=== PATIENT | female | born 1935 | race Caucasian/White ===

== ENCOUNTER → 2016-02-14 | Outpatient (CLI) | payer OTHER ==
[~2016-02-14] MED LIST: ALBU18002 INH; ASPI81TA28 PO; BUDE180I INH; CHOL2000 PO; COEN1CAP17 PO; HYDR25TA5 PO; LOSA100T65 PO; MECL1TAB40 PO; MONT1TAB3 PO; NITR0.4S UT; PANT1TAB3 PO; PRVC/40 PO; SYN137 PO; TERA5CAP PO; TPRSR50 PO; WARF2.5T8 PO
[2016-02-14 09:54] LABS: BLOOD UREA NITROGEN 14 mg/dl (7-18); BUN/CREATININE RATIO 18.3 (10-20); CALCIUM 9.4 mg/dl (8.5-10.1); CARBON DIOXIDE 29 mmol/L (21-32); CHLORIDE 99 mmol/L (98-107); CREATININE 0.78 mg/dl (0.60-1.20); GLUCOSE 111 mg/dl (70-99); POTASSIUM 4.3 mmol/L (3.5-5.1); SODIUM 136 mmol/L (136-145)
== END ==
LOC: C.LABFOXMH 09:23
PROVIDERS: ATTEND Internal Medicine
DX: R60.9 Edema, unspecified (principal)

== ENCOUNTER → 2016-05-08 | Outpatient (CLI) | payer OTHER ==
[~2016-05-08] MED LIST changes: -PANT1TAB3 PO; +PANT1TAB48 PO
[2016-05-08 09:54] LABS: INR 1.1 (0.9-1.1); PROTHROMBIN TIME (PATIENT) 12.1 SECONDS (9.0-12.0)
== END | disposition home or self-care (01) ==
LOC: C.LABFOXMH 08:53
PROVIDERS: ATTEND Internal Medicine Cardiovascular Disease
DX: I48.91 Unspecified atrial fibrillation (principal)

== ENCOUNTER → 2016-05-11 | Outpatient (CLI) | payer OTHER ==
[2016-05-11 09:57] LABS: PROTHROMBIN TIME (PATIENT) 41.5 SECONDS (9.0-12.0)
[2016-05-11 09:58] LABS: INR 3.7 (0.9-1.1)
== END | disposition home or self-care (01) ==
LOC: C.LABFOXMH 09:02
PROVIDERS: ATTEND Internal Medicine
DX: I48.91 Unspecified atrial fibrillation (principal)

== ENCOUNTER → 2016-05-16 | Outpatient (CLI) | payer OTHER ==
[2016-05-16 09:39] LABS: PROTHROMBIN TIME (PATIENT) 50.4 SECONDS (9.0-12.0)
[2016-05-16 09:50] LABS: INR 4.4 (0.9-1.1)
== END ==
LOC: C.LABFOXMH 09:02
PROVIDERS: ATTEND Internal Medicine
DX: Z51.81 Encounter for therapeutic drug level monitoring (principal); Z79.01 Long term (current) use of anticoagulants

== ENCOUNTER → 2016-05-21 | Outpatient (CLI) | payer OTHER ==
[2016-05-21 10:11] LABS: PROTHROMBIN TIME (PATIENT) 42.6 SECONDS (9.0-12.0)
[2016-05-21 10:14] LABS: INR 3.8 (0.9-1.1)
== END | disposition home or self-care (01) ==
LOC: C.LABFOXMH 09:19
PROVIDERS: ATTEND Internal Medicine Cardiovascular Disease
DX: I48.91 Unspecified atrial fibrillation (principal); Z51.81 Encounter for therapeutic drug level monitoring; Z79.01 Long term (current) use of anticoagulants

== ENCOUNTER → 2016-05-25 | Outpatient (CLI) | payer OTHER ==
[2016-05-25 08:26] LABS: INR 1.5 (0.9-1.1); PROTHROMBIN TIME (PATIENT) 16.8 SECONDS (9.0-12.0)
== END | disposition home or self-care (01) ==
LOC: C.LABFOXMH 07:53
PROVIDERS: ATTEND Pharmacist Pharmacotherapy
DX: Z51.81 Encounter for therapeutic drug level monitoring (principal); Z79.01 Long term (current) use of anticoagulants

== ENCOUNTER → 2016-06-01 | Outpatient (CLI) | payer OTHER ==
[2016-06-01 09:11] LABS: PROTHROMBIN TIME (PATIENT) 22.2 SECONDS (9.0-12.0)
--- NOTE | 2016-06-15 10:08 | CODING QUERY NO DIAGNOSIS ---
TREATMENT RENDERED WITHOUT A DIAGNOSIS 33 To promote full compliance with coding requirements relating to patient care, physician participation is requested in all cases of scale tester uncertainty. Please assist us with providing a diagnosis/symptom for the test(s) below: A diagnosis/symptom was not documented on your Order. A valid diagnosis/symptom is required to bill all insurances. Please remember that we are unable to code a diagnosis of rule out, probable, possible, questionable, or suspected. DOS 06/01/16 Tests that require a diagnosis: * PT/INR DIAGNOSIS: Provider Signature: Date: Thank you Jailyn Mancilla [facility] Information Management Once completed, please kindly fax back to [phone] For questions please call [phone]
== END ==
LOC: C.LABFOXMH 08:50
PROVIDERS: ATTEND Internal Medicine Cardiovascular Disease
DX: I48.91 Unspecified atrial fibrillation (principal)

== ENCOUNTER → 2016-06-15 | Outpatient (CLI) | payer OTHER ==
[2016-06-15 10:33] LABS: INR 1.6 (0.9-1.1); PROTHROMBIN TIME (PATIENT) 17.1 SECONDS (9.0-12.0)
--- NOTE | 2016-06-29 12:07 | CODING QUERY NO DIAGNOSIS ---
TREATMENT RENDERED WITHOUT A DIAGNOSIS To promote full compliance with coding requirements relating to patient care, physician participation is requested in all cases of management manager uncertainty. Please assist us with providing a diagnosis/symptom for the test(s) below: A diagnosis/symptom was not documented on your Order. A valid diagnosis/symptom is required to bill all insurances. Please remember that we are unable to code a diagnosis of rule out, probable, possible, questionable, or suspected. Tests that require a diagnosis: * PT/INR DIAGNOSIS: Provider Signature: Date: Thank you Ginger Patino [employer] Information Management Once completed, please kindly fax back to [phone] For questions please call [phone]
== END | disposition home or self-care (01) ==
LOC: C.LABFOXMH 09:52
PROVIDERS: ATTEND Internal Medicine Cardiovascular Disease
DX: I48.91 Unspecified atrial fibrillation (principal)

== ENCOUNTER → 2016-06-29 | Outpatient (CLI) | payer OTHER ==
[2016-06-29 09:44] LABS: INR 1.9 (0.9-1.1); PROTHROMBIN TIME (PATIENT) 20.9 SECONDS (9.0-12.0)
== END ==
LOC: C.LABFOXMH 09:03
PROVIDERS: ATTEND Internal Medicine Cardiovascular Disease
DX: I48.91 Unspecified atrial fibrillation (principal); Z51.81 Encounter for therapeutic drug level monitoring; Z79.01 Long term (current) use of anticoagulants

== ENCOUNTER → 2016-07-13 | Outpatient (CLI) | payer OTHER ==
[2016-07-13 12:02] LABS: INR 2.7 (0.9-1.1); PROTHROMBIN TIME (PATIENT) 30.5 SECONDS (9.0-12.0)
== END | disposition home or self-care (01) ==
LOC: C.LABFOXMH 08:58
PROVIDERS: ATTEND Internal Medicine Cardiovascular Disease
DX: I48.91 Unspecified atrial fibrillation (principal); Z51.81 Encounter for therapeutic drug level monitoring; Z79.01 Long term (current) use of anticoagulants

== ENCOUNTER → 2016-08-06 | Outpatient (CLI) | payer OTHER ==
[2016-08-06 10:54] LABS: HEMATOCRIT 35.9 % (37-47); MEAN CORPUSCULAR HEMOGLOBIN 32.9 pg (25-34); MEAN CORPUSCULAR HGB CONC 34.3 g/dl (32-36); PLATELET COUNT 152 K/uL (130-400); RED BLOOD COUNT 3.74 M/uL (4.2-5.4); WHITE BLOOD COUNT 5.45 K/uL (4.8-10.8)
[2016-08-06 11:02] LABS: ALT/SGPT 40 U/L (12-78); BLOOD UREA NITROGEN 12 mg/dl (7-18); BUN/CREATININE RATIO 13.8 (10-20); CARBON DIOXIDE 26 mmol/L (21-32); CHLORIDE 103 mmol/L (98-107); CREATININE 0.85 mg/dl (0.60-1.20); GLUCOSE 112 mg/dl (70-99); SODIUM 137 mmol/L (136-145)
[2016-08-06 11:11] LABS: ESTIMATED AVERAGE GLUCOSE 143 mg/dl; HA1C FLAG Normal (Normal)
[2016-08-06 11:12] LABS: ALB/GLOB RATIO 0.9 (0.9-2); ALKALINE PHOSPHATASE 110 U/L (45-117); AST/SGOT 24 U/L (15-37)
== END ==
LOC: C.LABFOXMH 08:26
PROVIDERS: ATTEND Internal Medicine
DX: E11.9 Type 2 diabetes mellitus without complications (principal); R53.83 Other fatigue; E03.9 Hypothyroidism, unspecified

== ENCOUNTER → 2016-08-10 | Outpatient (CLI) | payer OTHER | END | disposition home or self-care (01) | LOC: C.LABFOXMH 08:17 | PROVIDERS: ATTEND Internal Medicine | DX: Z51.81 Encounter for therapeutic drug level monitoring (principal); Z79.01 Long term (current) use of anticoagulants ==

== ENCOUNTER → 2016-09-07 | Outpatient (CLI) | payer OTHER ==
[2016-09-07 09:56] LABS: INR 2.2 (0.9-1.1); PROTHROMBIN TIME (PATIENT) 23.8 SECONDS (9.0-12.0)
--- NOTE | 2016-09-10 15:45 | CODING QUERY NO DIAGNOSIS ---
Valid Physician Order Needed A valid physician order must be submitted in order to properly bill for the service(s) provided, including date of service(s), valid diagnosis, and physician signature. If these tests are done on a recurring basis the original physician order must be submitted in order to code and bill for the service(s) provided. Please fax us the original, signed physician order so that we may expedite billing to [phone] DOS 09/07/2016 * PROTHROMBIN TIME Thank you [facility] Information Management
== END | disposition home or self-care (01) ==
LOC: C.LABFOXMH 09:24
PROVIDERS: ATTEND Internal Medicine Cardiovascular Disease
DX: I48.91 Unspecified atrial fibrillation (principal)

== ENCOUNTER → 2016-10-03 | Outpatient (CLI) | payer OTHER ==
[2016-10-03 10:43] LABS: INR 2.4 (0.9-1.1); PROTHROMBIN TIME (PATIENT) 26.1 SECONDS (9.0-12.0)
[2016-10-03 10:46] LABS: ALT/SGPT 26 U/L (12-78); AST/SGOT 18 U/L (15-37); BLOOD UREA NITROGEN 12 mg/dl (7-18); BUN/CREATININE RATIO 15.8 (10-20); CALCIUM 8.8 mg/dl (8.5-10.1); CARBON DIOXIDE 27 mmol/L (21-32); CHLORIDE 104 mmol/L (98-107); CREATININE 0.75 mg/dl (0.60-1.20); GLUCOSE 89 mg/dl (70-99); POTASSIUM 3.8 mmol/L (3.5-5.1); SODIUM 135 mmol/L (136-145)
[2016-10-03 10:57] LABS: ALB/GLOB RATIO 0.9 (0.9-2); ALKALINE PHOSPHATASE 90 U/L (45-117); CHOLESTEROL 150 mg/dl (0-200); CHOLESTEROL/HDL RATIO 3.1; HDL CHOLESTEROL 48 mg/dl; LDL CHOLESTEROL CALCULATED 77 mg/dl; TRIGLYCERIDES 125 mg/dl (0-150); VERY LOW DENSITY LIPOPROT CALC 25 mg/dl
== END ==
LOC: C.LABFOXMH 10:09
PROVIDERS: ATTEND Internal Medicine
DX: E78.00 Pure hypercholesterolemia, unspecified (principal); Z79.01 Long term (current) use of anticoagulants

== ENCOUNTER → 2016-10-16 | Outpatient (CLI) | payer OTHER | LOC: C.LABFOXMH 11:49 | PROVIDERS: ATTEND Nurse Practitioner Family | DX: R19.7 Diarrhea, unspecified (principal) ==

== ENCOUNTER → 2016-10-31 | Outpatient (CLI) | payer OTHER ==
[2016-10-31 10:15] LABS: INR 2.5 (0.9-1.1)
== END ==
LOC: C.LABFOXMH 09:08
PROVIDERS: ATTEND Internal Medicine Cardiovascular Disease
DX: Z79.01 Long term (current) use of anticoagulants (principal)

== ENCOUNTER 2016-11-04 13:56 | Emergency (ER) | payer OTHER ==
[~2016-11-04] VITALS: Ht 162.6 cm; Wt 93.4 kg
[~2016-11-04 13:56] MED LIST changes: -WARF2.5T8 PO
[2016-11-04 14:07] VITALS: TEMP 37.1; Ht 162.6 cm; Wt 93.4 kg
[2016-11-04] MEDS ORDERED: WARF2.5T8 PO (14:35)
--- NOTE | 2016-11-04 14:43 | EMERGENCY ROOM VISIT NOTE ---
History Report prepared by Ileana: Gary Johnson Under the Supervision of: Dr. Danilo Dey M.D. First contact with patient: 14:19 Chief Complaint: EYE ASSESSMENT Stated Complaint: RT EYE, HEADACHE History of Present Illness The patient is a 81 year old female who presents to the Emergency Room with complaints of constant right eye swelling that occurred this morning. She rates her discomfort as a 5/10 in severity. The patient states that she went to bed at 2130. She states that she woke up multiple times and did not notice any eye injury. The patient states that she woke up this morning and noticed around her eye was black and blue and swollen, but denies any possible injury. She states that around her eye was mildly painful, but admits that this has resolved. She admits that she is currently on Coumadin. The patient denies eye pain in general or with movement and visionary problems. Source of History: patient Onset: this morning Position: eye (right) Symptom Intensity: 5/10 Quality: other (swelling) Timing: constant Review of Systems See HPI for pertinent positives & negatives. A total of 10 systems reviewed and were otherwise negative. Past Medical & Surgical Medical Problems: (1) HTN (hypertension) (2) Hypothyroidism (3) New onset a-fib (4) TIA (transient ischemic attack) Family History Patient reports no known family medical history. Social History Smoking Status: Never Smoker Alcohol Use: none Drug Use: none Housing Status: assisted living Occupation Status: retired Current/Historical Medications Scheduled Aspirin (Aspirin Ec), 81 MG PO QAM Budesonide (Inhalation) (Pulmicort Flexhaler), 2 PUFFS INH BID Cholecalciferol (Vitamin D3), 1 CAP PO QAM Coenzyme Q10 (Ubidecarenone) (Co Q 10), 200 MG PO QAM Hydrochlorothiazide (Hydrochlorothiazide), 25 MG PO Q2D Levothyroxine Sodium (Levothyroxine Sodium), 137 MCG PO DAILYBB Losartan Potassium (Cozaar), 100 MG PO QAM Metoprolol Succinate (Metoprolol Succinate ER), 50 MG PO BID Montelukast Sodium (Singulair), 10 MG PO HS Nitroglycerin (Nitrostat), 0.4 MG UT PRN Pantoprazole (Protonix), 40 MG PO QAM Pravastatin Sod (Pravastatin Sodium), 40 MG PO QPM Terazosin Hcl (Hytrin), 5 MG PO QAM Warfarin Sod (Jantoven), 2.5 MG PO DAILY Scheduled PRN Albuterol Sulfate (Proair Respiclick), 2 PUFFS INH QID PRN for Wheezing Meclizine HCl (Meclizine HCl), 1 TAB PO TID PRN for Dizziness or Vertigo Allergies Coded Allergies: Amlodipine (Verified Allergy, Unknown, UNKNOWN, 11/04/16) Codeine (Verified Allergy, Unknown, UNKNOWN, 11/04/16) NSAIDs (Verified Allergy, Unknown, UNKNOWN, 11/04/16) NUTS (Verified Allergy, Unknown, UNKNOWN, 11/04/16) Naproxen (Verified Allergy, Unknown, UNKNOWN, 11/04/16) Oxycodone (Verified Allergy, Unknown, UNKNOWN, 11/04/16) Physical Exam Vital Signs Date Time Temp Pulse Resp B/P (MAP) Pulse Ox O2 Delivery O2 Flow Rate FiO2 11/04/16 15:44 59 16 169/81 96 11/04/16 14:07 37.1 73 20 170/75 98 Room Air Physical Exam GENERAL: Patient is a healthy-appearing well-nourished 81 year old female. HEAD: Normocephalic atraumatic EYES: Ocular movements intact pupils equal and react to light. Soft tissue swelling around right eye that is ecchymotic. Eye has good ROM free from pain. EOM in tact. OROPHARYNX mucous membranes are moist no exudates present no erythema or edema present NECK: Supple no nuchal rigidity CHEST: Good equal expansion LUNGS: Clear and equal to auscultation CARDIAC: Normal S1 and S2 ABDOMEN: Soft nontender no guarding BACK: No CVA tenderness EXTREMITIES: No pain upon palpation normal muscle strength in all groups no clubbing cyanosis or edema NEURO: Patient is following commands and answering questions appropriately. Alert and oriented x3 Cranial Nerves 2-12 grossly intact Medical Decision & Procedures ER Provider Diagnostic Interpretation: CT results as stated below per my review and radiologist interpretation: FACIAL BONES-MXILLOFAC WITHOUT CT DOSE: HISTORY: Pain. Edema. Soft tissue edema. Pt rt eye swelling TECHNIQUE: Multiaxial CT images of the maxillofacial region were performed and reformatted in the coronal plane without the use of contrast. A dose lowering technique was utilized adhering to the principles of ALARA. COMPARISON: None. FINDINGS: The visualized cervical spine, skull base, pterygoid plates, nasal bones, lamina papyracea, orbital floors, mandible, and zygomatic arches are intact. No fractures. The orbits are unremarkable. There are findings of considerable soft tissue edematous change about the right lateral facial region and right periorbital region.] Appears symmetric. The retroseptal structures are unremarkable. The optic nerves appear symmetric. No acute bony abnormality. Major sinuses are considered clear. No evidence for lytic or blastic process. IMPRESSION: 1. Findings consistent with generalized considerable soft tissue edematous change in the region of the right facial, right periorbital, and lateral right facial region. 2. The globes are symmetric with no retroseptal edematous change. 3. No acute bony abnormality. 4. No evidence for drainable abscess or collection. 5. The appearance is suggestive of a generalized soft tissue cellulitis. 6. Mild bilateral reactive cervical adenopathy. The above report was generated using voice recognition software. It may contain grammatical, syntax or spelling errors. Electronically signed by: Rufino Mckinney M.D. 11/04/2016 3:10 PM Dictated Date/Time: 11/04/2016 3:06 PM HEAD WITHOUT CONTRAST (CT) CT DOSE: 843.56 mGy.cm HISTORY: Pain. Edema. Pt c/o Rt head swelling TECHNIQUE: Multiaxial CT images of the head were performed without the use of intravenous contrast. A dose lowering technique was utilized adhering to the principles of ALARA. Comparison: 12/22/2015 Findings: Considerable extracranial right prefrontal and periportal soft tissue edema. Soft tissue edema is also seen lateral to the right zygomatic arch. No acute bony abnormality. Major sinuses are clear. Findings of considerable chronic small vessel change throughout both cerebral hemispheres. No acute intracranial hemorrhage. No midline shift. Intracranial soft tissue edema posterior to the right parietal vertex. The calvarium and skull base are intact. The ventricles and sulci are within normal limits. There is no mass, hematoma, midline shift, or acute infarct. Impression: 1. Extracranial soft tissue edema. 2. Intracranial chronic small vessel change with no acute process. The above report was generated using voice recognition software. It may contain grammatical, syntax or spelling errors. Electronically signed by: Rufino Mckinney M.D. 11/04/2016 3:05 PM Dictated Date/Time: 11/04/2016 3:03 PM Laboratory Results 11/04/16 14:35 Red Blood Count 3.44, Mean Corpuscular Volume 94.5, Mean Corpuscular Hemoglobin 31.7, Mean Corpuscular Hemoglobin Concent 33.5, Mean Platelet Volume 10.6, Neutrophils (%) (Auto) 64.7, Lymphocytes (%) (Auto) 14.9, Monocytes (%) (Auto) 16.7, Eosinophils (%) (Auto) 3.3, Basophils (%) (Auto) 0.3, Neutrophils # (Auto ) 4.67, Lymphocytes # (Auto) 1.08, Monocytes # (Auto) 1.21, Eosinophils # (Auto ) 0.24, Basophils # (Auto) 0.02 Test 11/04/16 14:35 White Blood Count 7.23 K/uL (4.8-10.8) Red Blood Count 3.44 M/uL (4.2-5.4) Hemoglobin 10.9 g/dL (12.0-16.0) Hematocrit 32.5 % (37-47) Mean Corpuscular Volume 94.5 fL (80-100) Mean Corpuscular Hemoglobin 31.7 pg (25-34) Mean Corpuscular Hemoglobin Concent 33.5 g/dl (32-36) Platelet Count 168 K/uL (130-400) Mean Platelet Volume 10.6 fL (7.4-10.4) Neutrophils (%) (Auto) 64.7 % Lymphocytes (%) (Auto) 14.9 % Monocytes (%) (Auto) 16.7 % Eosinophils (%) (Auto) 3.3 % Basophils (%) (Auto) 0.3 % Neutrophils # (Auto) 4.67 K/uL (1.4-6.5) Lymphocytes # (Auto) 1.08 K/uL (1.2-3.4) Monocytes # (Auto) 1.21 K/uL (0.11-0.59) Eosinophils # (Auto) 0.24 K/uL (0-0.5) Basophils # (Auto) 0.02 K/uL (0-0.2) RDW Standard Deviation 45.9 fL (36.4-46.3) RDW Coefficient of Variation 13.3 % (11.5-14.5) Immature Granulocyte % (Auto) 0.1 % Immature Granulocyte # (Auto) 0.01 K/uL (0.00-0.02) Prothrombin Time 31.9 SECONDS (9.0-12.0) Prothromb Time International Ratio 2.9 (0.9-1.1) Labs reviewed by ED physician. ED Course 1424: Past medical records reviewed. The patient was evaluated in room B04B. A complete history and physical examination was performed. 1528: Upon reexamination the patient is doing well. I discussed results and treatment plan with the patient. She verbalizes agreement and understanding. The patient is ready for discharge. Medical Decision The differential diagnosis includes etiologies such as: black eye, orbit fracture, bleeding hemorrhage. This is an 81-year-old female that presents emergency department complaining of right I orbit swelling. The patient is allergic black eye to this area. The patient does not remember hitting her eye but woke up this morning like this. The large amounts while she was sent for CAT scan of the face as well as head. This is not show any evidence of acute fracture or retrobulbar hematoma. Patient's finding I felt that the patient can safely be discharged home. Her Coumadin level is slightly elevated. I will have the patient hold that for 3 days until she follows up with her primary care physician. Patient was in agreement with the treatment plan. Extraocular movement is intact and the patient has no pain eye movement. Medication Reconcilliation Current Medication List: was personally reviewed by me Blood Pressure Screening Patient's blood pressure: Elevated blood pressure Blood pressure disposition: Referred to PCP Impression Primary Impression: Facial contusion Additional Impression: HTN (hypertension) Scribe Attestation The scribe's documentation has been prepared under my direction and personally reviewed by me in its entirety. I confirm that the note above accurately reflects all work, treatment, procedures, and medical decision making performed by me. Departure Information Dispostion Home / Self-Care Referrals Sarina Hall (PCP) Forms HOME CARE DOCUMENTATION FORM, IMPORTANT VISIT INFORMATION, WORK / SCHOOL INSTRUCTIONS Patient Instructions ED Contusion Eye, Hypertension Control, My [facility] Additional Instructions Follow up with DR Fowler's office Hold Coumadin for three days You have been examined and treated today on an emergency basis only. This is not a substitute for, or an effort to provide, complete comprehensive medical care. It is impossible to recognize and treat all injuries or illnesses in a single emergency department visit. It is therefore important that you follow up closely with Dr Fowler. Call as soon as possible for an appointment. Thank you for your time and consideration. I look forward to speaking with you again soon. Please don't hesitate to call us if you have any questions. Problem Qualifiers Primary Impression: Facial contusion Encounter type: initial encounter Qualified Codes: S00.83XA - Contusion of other part of head, initial encounter Additional Impression: HTN (hypertension) Hypertension type: unspecified Qualified Codes: I10 - Essential (primary) hypertension
[2016-11-04 14:48] LABS: BASO % 0.3 %; BASO ABS # 0.02 K/uL (0-0.2); COMPLETE YES; EOS % 3.3 %; HEMATOCRIT 32.5 % (37-47); IG% 0.1 %; LYMPH % 14.9 %; LYMPH ABS # 1.08 K/uL (1.2-3.4); MEAN CELL VOLUME 94.5 fL (80-100); MEAN CORPUSCULAR HEMOGLOBIN 31.7 pg (25-34); MEAN CORPUSCULAR HGB CONC 33.5 g/dl (32-36); MEAN PLATELET VOLUME 10.6 fL (7.4-10.4); MONO % 16.7 %; NEUT % 64.7 %; PLATELET COUNT 168 K/uL (130-400); RED BLOOD COUNT 3.44 M/uL (4.2-5.4); WHITE BLOOD COUNT 7.23 K/uL (4.8-10.8)
[2016-11-04 14:56] LABS: INR 2.9 (0.9-1.1); PROTHROMBIN TIME (PATIENT) 31.9 SECONDS (9.0-12.0)
--- NOTE | 2016-11-04 15:06 | DIAGNOSTIC IMAGING REPORT ---
HEAD WITHOUT CONTRAST (CT) CT DOSE: 843.56 mGy.cm HISTORY: Pain. Edema. Pt c/o Rt head swelling TECHNIQUE: Multiaxial CT images of the head were performed without the use of intravenous contrast. A dose lowering technique was utilized adhering to the principles of ALARA. Comparison: 12/22/2015 Findings: Considerable extracranial right prefrontal and periportal soft tissue edema. Soft tissue edema is also seen lateral to the right zygomatic arch. No acute bony abnormality. Major sinuses are clear. Findings of considerable chronic small vessel change throughout both cerebral hemispheres. No acute intracranial hemorrhage. No midline shift. Intracranial soft tissue edema posterior to the right parietal vertex. The calvarium and skull base are intact. The ventricles and sulci are within normal limits. There is no mass, hematoma, midline shift, or acute infarct. Impression: 1. Extracranial soft tissue edema. 2. Intracranial chronic small vessel change with no acute process. The above report was generated using voice recognition software. It may contain grammatical, syntax or spelling errors. Electronically signed by: Rufino Mckinney M.D. 11/04/2016 3:05 PM Dictated Date/Time: 11/04/2016 3:03 PM
--- NOTE | 2016-11-04 15:11 | DIAGNOSTIC IMAGING REPORT ---
FACIAL BONES-MXILLOFAC WITHOUT CT DOSE: HISTORY: Pain. Edema. Soft tissue edema. Pt rt eye swelling TECHNIQUE: Multiaxial CT images of the maxillofacial region were performed and reformatted in the coronal plane without the use of contrast. A dose lowering technique was utilized adhering to the principles of ALARA. COMPARISON: None. FINDINGS: The visualized cervical spine, skull base, pterygoid plates, nasal bones, lamina papyracea, orbital floors, mandible, and zygomatic arches are intact. No fractures. The orbits are unremarkable. There are findings of considerable soft tissue edematous change about the right lateral facial region and right periorbital region.] Appears symmetric. The retroseptal structures are unremarkable. The optic nerves appear symmetric. No acute bony abnormality. Major sinuses are considered clear. No evidence for lytic or blastic process. IMPRESSION: 1. Findings consistent with generalized considerable soft tissue edematous change in the region of the right facial, right periorbital, and lateral right facial region. 2. The globes are symmetric with no retroseptal edematous change. 3. No acute bony abnormality. 4. No evidence for drainable abscess or collection. 5. The appearance is suggestive of a generalized soft tissue cellulitis. 6. Mild bilateral reactive cervical adenopathy. The above report was generated using voice recognition software. It may contain grammatical, syntax or spelling errors. Electronically signed by: Rufino Mckinney M.D. 11/04/2016 3:10 PM Dictated Date/Time: 11/04/2016 3:06 PM
[2016-11-04 15:44] VITALS: BP 169/81; PULSE 59; O2SAT 96
== END 2016-11-04 15:47 | disposition home or self-care (01) ==
LOC: C.EDB 13:59 → C.EDA 15:47
DX: S00.83XA Contusion of other part of head, initial encounter (principal); I10 Essential (primary) hypertension; X58.XXXA Exposure to other specified factors, initial encounter; I48.91 Unspecified atrial fibrillation; E03.9 Hypothyroidism, unspecified; Z86.73 Personal history of transient ischemic attack (TIA), and cerebral infarction without residual deficits; Z79.01 Long term (current) use of anticoagulants; Z79.82 Long term (current) use of aspirin; Z79.899 Other long term (current) drug therapy

== ENCOUNTER → 2016-11-05 | Outpatient (CLI) | payer OTHER ==
[~2016-11-05] MED LIST changes: +WARF2.5T8 PO
[2016-11-05 13:19] LABS: HEMATOCRIT 29.9 % (37-47); MEAN CELL VOLUME 95.5 fL (80-100); MEAN CORPUSCULAR HEMOGLOBIN 32.3 pg (25-34); MEAN CORPUSCULAR HGB CONC 33.8 g/dl (32-36); MEAN PLATELET VOLUME 11.4 fL (7.4-10.4); PLATELET COUNT 152 K/uL (130-400); RED BLOOD COUNT 3.13 M/uL (4.2-5.4); WHITE BLOOD COUNT 7.68 K/uL (4.8-10.8)
[2016-11-05 13:34] LABS: ALT/SGPT 23 U/L (12-78); AST/SGOT 18 U/L (15-37); BLOOD UREA NITROGEN 12 mg/dl (7-18); BUN/CREATININE RATIO 13.9 (10-20); CALCIUM 8.7 mg/dl (8.5-10.1); CARBON DIOXIDE 25 mmol/L (21-32); CHLORIDE 99 mmol/L (98-107); CREATININE 0.84 mg/dl (0.60-1.20); GLUCOSE 145 mg/dl (70-99); POTASSIUM 3.6 mmol/L (3.5-5.1); SODIUM 132 mmol/L (136-145)
[2016-11-05 13:45] LABS: ALB/GLOB RATIO 0.9 (0.9-2); ALKALINE PHOSPHATASE 93 U/L (45-117)
== END | disposition home or self-care (01) ==
LOC: C.LABFOXAE 12:08
PROVIDERS: ATTEND Internal Medicine
DX: R41.82 Altered mental status, unspecified (principal)

== ENCOUNTER → 2016-11-06 | Outpatient (CLI) | payer OTHER ==
--- NOTE | 2016-11-06 16:33 | DIAGNOSTIC IMAGING REPORT ---
HEAD WITHOUT CONTRAST (CT) CLINICAL HISTORY: 81 years-old Female presenting with LEFT UPPER EXTREMITY WEAKNESS. TECHNIQUE: Multidetector CT imaging of the head was performed without the use of intravenous contrast. IV contrast: None. A dose lowering technique was used consistent with the principles of ALARA (as low as reasonably achievable). COMPARISON: 11/04/2016. CT DOSE (mGy.cm): The estimated cumulative dose is 776.86 mGycm. FINDINGS: Flame Cutting Supervisor topogram: Unremarkable. Proportional ventricular and sulcal prominence except at the vertex where there is effacement of the sulci at the vertex with gyral crowding. A mildly decreased callosal angle is noted on reformatted coronal plane. Periventricular and subcortical white matter hypoattenuation. No mass effect or midline shift. No hemorrhage or acute territorial infarct. No extra-axial fluid collection. Paranasal sinuses and mastoid air cells clear. Calvarium intact. Abnormal hyperdense lobular collection at the right vertex. IMPRESSION: 1. Findings remain unchanged with effacement of the sulci at the vertex with gyral crowding and a slightly decreased callosal angle, suggestive of normal pressure hydrocephalus. 2. Hyperdense lobular collection at the right vertex could be compatible with a soft tissue hematoma in the setting of recent trauma. Without a recent history of trauma, neoplastic soft tissue cannot be excluded. The report will be called/faxed according to standard departmental protocol. Electronically signed by: Romario Bass M.D. 11/06/2016 4:31 PM Dictated Date/Time: 11/06/2016 4:24 PM
== END | disposition home or self-care (01) ==
LOC: C.CTS 16:02
PROVIDERS: ATTEND Internal Medicine
DX: M62.81 Muscle weakness (generalized) (principal)

== ENCOUNTER → 2016-11-20 | Outpatient (CLI) | payer OTHER ==
[2016-11-20 08:13] LABS: MEAN CELL VOLUME 93.9 fL (80-100); MEAN CORPUSCULAR HGB CONC 34.1 g/dl (32-36); MEAN PLATELET VOLUME 10.3 fL (7.4-10.4); PLATELET COUNT 227 K/uL (130-400); RED BLOOD COUNT 3.62 M/uL (4.2-5.4); WHITE BLOOD COUNT 11.39 K/uL (4.8-10.8)
[2016-11-20 08:26] LABS: BLOOD UREA NITROGEN 18 mg/dl (7-18); BUN/CREATININE RATIO 25.7 (10-20); CARBON DIOXIDE 29 mmol/L (21-32); CHLORIDE 93 mmol/L (98-107); GLUCOSE 81 mg/dl (70-99); POTASSIUM 3.8 mmol/L (3.5-5.1); SODIUM 128 mmol/L (136-145)
== END | disposition home or self-care (01) ==
LOC: C.LABFOXAE 07:47
PROVIDERS: ATTEND Internal Medicine
DX: R53.1 Weakness (principal)

== ENCOUNTER → 2016-11-23 | Outpatient (CLI) | payer OTHER ==
--- NOTE | 2016-11-23 14:13 | MAMMOGRAPHY REPORT ---
BILATERAL DIGITAL SCREENING MAMMOGRAM WITH CAD: 11/23/2016 CLINICAL HISTORY: Routine screening. Patient has no complaints. TECHNIQUE: Current study was also evaluated with a Computer Aided Detection (CAD) system. Bilateral CC and MLO views were obtained. The images are somewhat suboptimal due to difficulties with patient positioning as she had to be held for all views. The pectoralis muscles are not well visualized on bilateral MLO views. COMPARISON: Comparison is made to exams dated: 11/18/2014 mammogram, 11/23/2015 mammogram, 11/16/2013 mammogram, 11/10/2012 mammogram, 11/08/2011 mammogram, and 11/06/2010 mammogram - [facility]. BREAST COMPOSITION: There are scattered areas of fibroglandular density in both breasts. FINDINGS: No suspicious masses, calcifications, or areas of architectural distortion are noted in ei ther breast. There has been no significant interval change compared to prior exams. Scattered bilater al benign-appearing calcifications are not significantly changed. Small mass in the left inferior br east on the MLO view was previously marked with a mole marker and is consistent with a skin mole. Le ft inferior breast asymmetry on the MLO view is stable compared to the prior 2011 exam. IMPRESSION: ACR BI-RADS CATEGORY 2: BENIGN There is no mammographic evidence of malignancy. A 1 year screening mammogram is recommended. The pa tient will receive written notification of the results. Approximately 10% of breast cancers are not detected with mammography. A negative mammographic report should not delay biopsy if a clinically suggestive mass is present. Adrianna Van M.D. ah/:11/23/2016 11:55:39 Investigation Division Captain: Radha BUCIO(Jaqui)(M), [facility] letter sent: Normal 1/2 BI-RADS Code: ACR BI-RADS Category 2: Benign
== END | disposition home or self-care (01) ==
LOC: C.MAMM 09:22
PROVIDERS: ATTEND Internal Medicine
DX: Z12.31 Encounter for screening mammogram for malignant neoplasm of breast (principal)

== ENCOUNTER → 2016-11-29 | Outpatient (CLI) | payer OTHER ==
[2016-11-29 08:18] LABS: PROTHROMBIN TIME (PATIENT) 21.6 SECONDS (9.0-12.0)
== END | disposition home or self-care (01) ==
LOC: C.LABFOXAE 07:46
PROVIDERS: ATTEND Internal Medicine
DX: Z51.81 Encounter for therapeutic drug level monitoring (principal)

== ENCOUNTER → 2016-12-01 | Outpatient (CLI) | payer OTHER ==
[2016-12-01 14:59] LABS: HEMATOCRIT 35.2 % (37-47); MEAN CELL VOLUME 94.9 fL (80-100); MEAN CORPUSCULAR HEMOGLOBIN 32.6 pg (25-34); MEAN CORPUSCULAR HGB CONC 34.4 g/dl (32-36); MEAN PLATELET VOLUME 10.2 fL (7.4-10.4); PLATELET COUNT 170 K/uL (130-400); RED BLOOD COUNT 3.71 M/uL (4.2-5.4); WHITE BLOOD COUNT 6.75 K/uL (4.8-10.8)
[2016-12-01 15:28] LABS: BLOOD UREA NITROGEN 17 mg/dl (7-18); BUN/CREATININE RATIO 19.4 (10-20); CALCIUM 8.7 mg/dl (8.5-10.1); CARBON DIOXIDE 28 mmol/L (21-32); CHLORIDE 93 mmol/L (98-107); CREATININE 0.88 mg/dl (0.60-1.20); GLUCOSE 117 mg/dl (70-99); POTASSIUM 4.3 mmol/L (3.5-5.1); SODIUM 127 mmol/L (136-145)
== END ==
LOC: C.LABFOXAE 10:25
PROVIDERS: ATTEND Nurse Practitioner Family
DX: R53.83 Other fatigue (principal)

== ENCOUNTER → 2016-12-20 | Outpatient (CLI) | payer OTHER ==
--- NOTE | 2016-12-20 10:10 | DIAGNOSTIC IMAGING REPORT ---
LUMBAR SPINE MRI HISTORY: R LEG PAIN TECHNIQUE: Multiplanar multisequence MRI of the lumbar spine was performed without the use of contrast. COMPARISON: Lumbar spine 12/22/2015. Lumbar spine MRI 09/01/2007. FINDINGS: For the purpose of the report the L5-S1 disc space will be located on axial image 23 of 25. Moderate to severe levoscoliosis is again noted. 4 mm of anterolisthesis of L5 on S1, unchanged. Mild disc space narrowing at L1-L2. Moderate to severe disc space narrowing at L2-L3 and L3-L4. Moderate to space narrowing at L4-L5 and L5-S1. This has slightly progressed. The conus terminates at the L1 level. Moderate to severe facet osteoarthritis within the mid to lower lumbar spine which is also progressed. Paraspinal soft tissues are unremarkable. Small calcified fibroid within the uterus. No fractures within the lumbar spine. L1-L2: Small broad-based posterior disc bulge resulting in minimal central canal and mild right neural foraminal narrowing. L2-L3: Small broad-based posterior disc bulge asymmetric to the right without significant central canal or left-sided neural foraminal narrowing. There is mild to moderate right-sided neural foraminal narrowing due to the disc bulge and facet hypertrophy. This is not significantly changed. L3-L4: Small broad-based posterior disc bulge asymmetric to the right with asymmetric right greater than left facet hypertrophy. This is primarily due to the scoliosis. There is mild central canal and moderate to severe right-sided neural foraminal narrowing. No significant left-sided neural foraminal narrowing. This remains unchanged. L4-L5: Broad-based posterior disc bulge with severe ligamentum and facet hypertrophy resulting and moderate to severe central canal narrowing. This has slightly progressed. Small hypointense nodular density posterior to the thecal sac at this level which measures 5 mm. This is best seen on axial image 20. This appears to be contiguous with the hypertrophied right ligamentum flavum. Mild to moderate bilateral neural foraminal narrowing. L5-S1: Broad-based posterior disc bulge with a small right paracentral focal disc protrusion best seen on axial image 22. There is also severe facet osteoarthritis. This results in mild central canal narrowing and mild right and moderate left neural foraminal narrowing. This has also slightly progressed. IMPRESSION: 1. Moderate to severe levoscoliosis of the lumbar spine is again noted. 2. Multilevel degenerative changes as described above which have slightly progressed. This is most pronounced at the L4-5 level which demonstrates moderate to severe central canal narrowing. Electronically signed by: Ike Tanner M.D. 12/20/2016 10:09 AM Dictated Date/Time: 12/20/2016 9:56 AM
== END | disposition home or self-care (01) ==
LOC: C.MRI 07:38
PROVIDERS: ATTEND Internal Medicine
DX: M54.5 Low back pain (principal); M41.86 Other forms of scoliosis, lumbar region; M43.17 Spondylolisthesis, lumbosacral region; M51.36 Other intervertebral disc degeneration, lumbar region

== ENCOUNTER → 2016-12-27 | Outpatient (CLI) | payer OTHER ==
[2016-12-27 09:10] LABS: INR 3.4 (0.9-1.1); PROTHROMBIN TIME (PATIENT) 38.2 SECONDS (9.0-12.0)
== END ==
LOC: C.LABFOXAE 07:59
PROVIDERS: ATTEND Nurse Practitioner Family
DX: I48.91 Unspecified atrial fibrillation (principal)

== ENCOUNTER → 2016-12-28 | Outpatient (CLI) | payer OTHER ==
--- NOTE | 2017-01-02 10:39 | CODING QUERY NO DIAGNOSIS ---
: 1935 TREATMENT RENDERED WITHOUT A DIAGNOSIS To promote full compliance with coding requirements relating to patient care, physician participation is requested in all cases of sprinkler fitter uncertainty. Please assist us with providing a diagnosis/symptom for the test(s) below: A diagnosis/symptom was not documented on your Order. A valid diagnosis/symptom is required to bill all insurances. Please remember that we are unable to code a diagnosis of rule out, probable, possible, questionable, or suspected. Tests that require a diagnosis: DOS: 12/28/16 * OVA & PARASITE DIRECT SMR+CON DIAGNOSIS: * STOOL CULTURE DIAGNOSIS: * CDIFF TOXIN B GENE DIAGNOSIS: Provider Signature: Date: Thank you Josselyn Prajapati [facility] Information Management Once completed, please kindly fax back to [phone] For questions please call [phone]
[2017-01-06 23:56] LABS: O&P SOURCE OTHER-STOOL
== END | disposition home or self-care (01) ==
LOC: C.LABFOXAE 10:31
PROVIDERS: ATTEND Internal Medicine
DX: R19.7 Diarrhea, unspecified (principal)

== ENCOUNTER → 2017-01-11 | Outpatient (CLI) | payer OTHER ==
[~2017-01-11] MED LIST changes: +PANT1TAB3 PO; -PANT1TAB48 PO
[2017-01-11 08:25] LABS: INR 2.9 (0.9-1.1); PROTHROMBIN TIME (PATIENT) 32.2 SECONDS (9.0-12.0)
== END ==
LOC: C.LABFOXAE 07:55
PROVIDERS: ATTEND Internal Medicine
DX: I48.91 Unspecified atrial fibrillation (principal)

== ENCOUNTER → 2017-01-14 | Outpatient (CLI) | payer OTHER ==
[~2017-01-14] MED LIST changes: -PANT1TAB3 PO; +PANT1TAB48 PO
[2017-01-14 11:26] LABS: INR 2.7 (0.9-1.1); PROTHROMBIN TIME (PATIENT) 28.1 SECONDS (9.0-12.0)
== END | disposition home or self-care (01) ==
LOC: C.LABFOXAE 11:00
PROVIDERS: ATTEND Internal Medicine
DX: Z51.81 Encounter for therapeutic drug level monitoring (principal); Z79.01 Long term (current) use of anticoagulants

== ENCOUNTER → 2017-01-18 | Outpatient (CLI) | payer OTHER ==
[~2017-01-18] MED LIST changes: +PANT1TAB3 PO; -PANT1TAB48 PO
== END ==
LOC: C.LABFOXAE 09:21
PROVIDERS: ATTEND Neurological Surgery
DX: D53.9 Nutritional anemia, unspecified (principal); G60.3 Idiopathic progressive neuropathy

== ENCOUNTER → 2017-01-22 | Outpatient (CLI) | payer OTHER ==
--- NOTE | 2017-01-22 16:20 | DIAGNOSTIC IMAGING REPORT ---
MRI OF THE BRAIN WITHOUT IV CONTRAST CLINICAL HISTORY: Hydrocephalus. Frequent falls. COMPARISON STUDY: CT of the brain dated 11/06/2016. MRI of the brain dated 12/25/2015. TECHNIQUE: MRI of the brain was performed utilizing various T1 and T2-weighted sequences in the axial, sagittal, and coronal planes. IV contrast was not administered for this examination. FINDINGS: Brain parenchyma: There are age-related involutional changes noting advanced confluent subcortical and periventricular microangiopathic disease. There is no hemorrhage or mass effect. There is no restricted diffusion to suggest acute ischemia. Mcgill-white matter differentiation is preserved. No extra-axial fluid collection is seen. The cerebellar tonsils are normal in configuration. Ventricles, sulci, and cisterns: Prominent secondary to involutional change. Ventricular caliber is similar to prior examinations. Pituitary and sella: Unremarkable. Intracranial vasculature: Normal flow voids are maintained at the skull base. Orbits: The bony orbits are grossly intact. Orbital contents are normal in appearance noting bilateral ocular lens implants. Sinuses and mastoids: Clear. Calvarium: Unremarkable. Cervical cord: Partially visualized cervical spinal cord is normal in morphology and signal intensity. IMPRESSION: Senescent changes as above with no acute intracranial abnormality. Electronically signed by: Carlos Fox M.D. 01/22/2017 4:19 PM Dictated Date/Time: 01/22/2017 4:15 PM
--- NOTE | 2017-01-22 16:23 | DIAGNOSTIC IMAGING REPORT ---
MRI OF THE CERVICAL SPINE WITHOUT CONTRAST CLINICAL HISTORY: Hydrocephalus. Frequent falls. COMPARISON: CT of the cervical spine December 22, 2015. TECHNIQUE: Utilizing a 1.5 Tammy magnet and dedicated coil, multiplanar, multiecho imaging of the cervical spine was performed without IV contrast. FINDINGS: The MRI of the brain will be reported separately. 3 mm of anterolisthesis of C4 on C5 is unchanged since CT of December 22, 2015 and likely due to facet arthrosis. Cervical cord signal and caliber are normal. There is no intracanalicular mass or fluid collection. A few T1 and T2 hyperintense lesions within the cervical and thoracic spines are consistent with hemangiomas. An 8 mm T2 hyperintense, T1 isointense C5 lesion also likely reflects a hemangioma. Paravertebral soft tissues are unremarkable. There is slight retrolisthesis of C5 on C6 and anterolisthesis of C6 on C7. C2-C3: The central canal and neural foramen are patent. C3-C4: The central canal is patent. There is moderate left neural foraminal stenosis due to facet arthrosis and uncovertebral hypertrophy. C4-C5: Central canal is patent. There is mild right neural foraminal stenosis. C5-C6: There is disc space narrowing with disc bulge. There is mild narrowing of the central canal. There is moderate right neural foraminal stenosis. C6-C7: Central canal is patent there is moderate right neural foraminal stenosis. C7-T1: Central canal and neural foramen are patent. IMPRESSION: 1. No cervical spine fracture. 2. Normal cervical cord signal and caliber. No intracanalicular fluid collection or mass. 3. Moderate multilevel degenerative disc disease and facet arthrosis. Mild central canal stenosis at C5-C6 and moderate multilevel neural foraminal stenosis, as detailed above. Electronically signed by: Nakul Pike M.D. 01/22/2017 4:22 PM Dictated Date/Time: 01/22/2017 4:14 PM
== END | disposition home or self-care (01) ==
LOC: C.MRIBC 14:33
PROVIDERS: ATTEND Neurological Surgery
DX: G91.9 Hydrocephalus, unspecified (principal); R29.6 Repeated falls; M50.20 Other cervical disc displacement, unspecified cervical region

== ENCOUNTER → 2017-01-25 | Outpatient (CLI) | payer OTHER ==
[2017-01-25 09:28] LABS: PROTHROMBIN TIME (PATIENT) 30.5 SECONDS (9.0-12.0)
== END | disposition home or self-care (01) ==
LOC: C.LABFOXAE 08:52
PROVIDERS: ATTEND Internal Medicine
DX: I48.91 Unspecified atrial fibrillation (principal)

== ENCOUNTER → 2017-01-29 | Outpatient (CLI) | payer OTHER ==
[2017-01-29 11:30] LABS: LYME DISEASE AB IGG NEG (NEG); LYME DISEASE AB IGM NEG (NEG)
== END ==
LOC: C.LABFOXAE 09:14
PROVIDERS: ATTEND Internal Medicine
DX: M62.81 Muscle weakness (generalized) (principal)

== ENCOUNTER → 2017-02-09 | Outpatient (CLI) | payer OTHER ==
[2017-02-09 10:47] LABS: INR 3.5 (0.9-1.1)
== END | disposition home or self-care (01) ==
LOC: C.LABFOXAE 12:02
PROVIDERS: ATTEND Internal Medicine Hospice and Palliative Medicine
DX: I48.91 Unspecified atrial fibrillation (principal)

== ENCOUNTER → 2017-03-01 | Outpatient (CLI) | payer OTHER ==
[2017-03-01 09:07] LABS: INR 2.5 (0.9-1.1)
== END | disposition home or self-care (01) ==
LOC: C.LABFOXAE 08:17
PROVIDERS: ATTEND Internal Medicine
DX: I48.91 Unspecified atrial fibrillation (principal)

== ENCOUNTER → 2017-03-15 | Outpatient (CLI) | payer OTHER ==
[2017-03-15 08:54] LABS: INR 2.9 (0.9-1.1)
== END ==
LOC: C.LABFOXAE 07:41
PROVIDERS: ATTEND Nurse Practitioner Family
DX: I48.91 Unspecified atrial fibrillation (principal)

== ENCOUNTER → 2017-04-05 | Outpatient (CLI) | payer OTHER ==
[2017-04-05 08:38] LABS: INR 2.7 (0.9-1.1)
== END ==
LOC: C.LABFOXAE 08:02
PROVIDERS: ATTEND Nurse Practitioner Family
DX: I48.91 Unspecified atrial fibrillation (principal)

== ENCOUNTER → 2017-04-22 | Outpatient (CLI) | payer OTHER ==
[2017-04-22 09:06] LABS: INR 3.2 (0.9-1.1)
== END ==
LOC: C.LABFOXAE 08:24
PROVIDERS: ATTEND Internal Medicine Hospice and Palliative Medicine
DX: G45.9 Transient cerebral ischemic attack, unspecified (principal)

== ENCOUNTER → 2017-05-20 | Outpatient (CLI) | payer OTHER ==
[2017-05-20 08:21] LABS: INR 3.9 (0.9-1.1)
== END ==
LOC: C.LABFOXAE 07:53
PROVIDERS: ATTEND Internal Medicine
DX: I48.91 Unspecified atrial fibrillation (principal)

== ENCOUNTER → 2017-05-24 | Outpatient (CLI) | payer OTHER ==
[2017-05-24 08:54] LABS: INR 2.4 (0.9-1.1)
--- NOTE | 2017-06-14 09:04 | CODING QUERY NO DIAGNOSIS ---
TREATMENT RENDERED WITHOUT A DIAGNOSIS Dr. Fowler, To promote full compliance with coding requirements relating to patient care, physician participation is requested in all cases of animal handler uncertainty. Please assist us with providing a diagnosis/symptom for the test(s) below: A diagnosis/symptom was not documented on your Order. A valid diagnosis/symptom is required to bill all insurances. Please remember that we are unable to code a diagnosis of rule out, probable, possible, questionable, or suspected. Tests that require a diagnosis: * PROTHROMBIN TIME DIAGNOSIS: DATE OF SERVICE: 05/24/17 Provider Signature: Date: Thank you Troy Bennett [facility] Information Management Once completed, please kindly fax back to [phone] For questions please call [phone]
== END | disposition home or self-care (01) ==
LOC: C.LABFOXAE 08:21
PROVIDERS: ATTEND Internal Medicine
DX: Z79.01 Long term (current) use of anticoagulants (principal)

== ENCOUNTER → 2017-05-27 | Outpatient (CLI) | payer OTHER ==
[2017-05-27 08:59] LABS: INR 2.5 (0.9-1.1)
--- NOTE | 2017-06-14 09:36 | CODING QUERY NO DIAGNOSIS ---
TREATMENT RENDERED WITHOUT A DIAGNOSIS Dr. Fowler, To promote full compliance with coding requirements relating to patient care, physician participation is requested in all cases of administrator of home health uncertainty. Please assist us with providing a diagnosis/symptom for the test(s) below: A diagnosis/symptom was not documented on your Order. A valid diagnosis/symptom is required to bill all insurances. Please remember that we are unable to code a diagnosis of rule out, probable, possible, questionable, or suspected. Tests that require a diagnosis: * PROTHROMBIN TIME DIAGNOSIS: DATE OF SERVICE: 05/27/17 Provider Signature: Date: Thank you Troy Bennett [facility] Information Management Once completed, please kindly fax back to [phone] For questions please call [phone]
== END | disposition home or self-care (01) ==
LOC: C.LABFOXAE 08:28
PROVIDERS: ATTEND Internal Medicine
DX: Z79.01 Long term (current) use of anticoagulants (principal)

== ENCOUNTER → 2017-06-10 | Outpatient (CLI) | payer OTHER ==
[2017-06-10 08:43] LABS: INR 3.4 (0.9-1.1)
== END | disposition home or self-care (01) ==
LOC: C.LABFOXAE 07:57
PROVIDERS: ATTEND Internal Medicine
DX: I48.91 Unspecified atrial fibrillation (principal)

== ENCOUNTER → 2017-06-13 | Outpatient (CLI) | payer OTHER | LOC: C.LABFOXAE 14:08 | PROVIDERS: ATTEND Internal Medicine | DX: N30.91 Cystitis, unspecified with hematuria (principal) ==

== ENCOUNTER → 2017-06-14 | Outpatient (CLI) | payer OTHER ==
[2017-06-14 10:18] LABS: INR 3.1 (0.9-1.1)
== END | disposition home or self-care (01) ==
LOC: C.LABFOXAE 08:01
PROVIDERS: ATTEND Internal Medicine
DX: I48.91 Unspecified atrial fibrillation (principal)

== ENCOUNTER → 2017-06-19 | Outpatient (CLI) | payer OTHER ==
[2017-06-19 08:15] LABS: INR 2.1 (0.9-1.1)
== END | disposition home or self-care (01) ==
LOC: C.LABFOXAE 07:54
PROVIDERS: ATTEND Internal Medicine
DX: I48.2 Chronic atrial fibrillation (principal)

== ENCOUNTER → 2017-06-26 | Outpatient (CLI) | payer OTHER ==
[2017-06-26 09:08] LABS: INR 2.6 (0.9-1.1)
== END | disposition home or self-care (01) ==
LOC: C.LABFOXAE 08:27
PROVIDERS: ATTEND Internal Medicine
DX: I48.2 Chronic atrial fibrillation (principal)

== ENCOUNTER → 2017-09-04 | Outpatient (CLI) | payer OTHER ==
[2017-09-04 08:36] LABS: INR 2.7 (0.9-1.1)
== END | disposition home or self-care (01) ==
LOC: C.LABFOXAE 07:46
PROVIDERS: ATTEND Internal Medicine
DX: I48.91 Unspecified atrial fibrillation (principal)

== ENCOUNTER → 2017-09-25 | Outpatient (CLI) | payer OTHER ==
[2017-09-25 09:41] LABS: INR 2.4 (0.9-1.1)
== END ==
LOC: C.LABFOXMH 08:26
PROVIDERS: ATTEND Internal Medicine Hospice and Palliative Medicine
DX: I48.91 Unspecified atrial fibrillation (principal)